=== PATIENT | male | born 1970 | race Caucasian/White ===

== ENCOUNTER 2016-09-05 15:12 | Inpatient (IN) ==
[2016-09-05] MEDS ORDERED: ZOSYN 3.375 GM/NS 3.375 GM/50 ML IVPB IV ONE (15:42)
[2016-09-05] MEDS ORDERED: NS 1,000 ML IV ONE (15:42)
[2016-09-05] MEDS ORDERED: DILAUDID IV ONE ×2 (15:42→20:10)
[2016-09-05] MEDS ORDERED: ZOFRAN IV ONE (15:42)
[2016-09-05 16:19] LABS: MANUAL DIFF NEEDED? NO
[2016-09-05 16:23] LABS: BASO% 0.6 % (0.0-0.8); EOS# 0.01 X1000 (0.0-0.7); EOS% 0.6 % (0.0-10.0); HEMATOCRIT 30.5 % (42.0-52.0); HEMOGLOBIN 10.1 g/dL (14.0-18.0); LYMPH# 0.18 X1000 (1.2-3.4); LYMPH% 11.1 % (20.5-51.1); MCH 32.4 PG (27-31); MCHC 33.1 g/dL (33-37); MCV 97.8 FL (81-99); MONO# 0.16 X1000 (0.11-0.59); MONO% 9.9 % (1.7-9.3); MPV 10.7 FL (7.4-10.4); NEUT% 77.8 % (42.2-75.2); PLT 107 X1000 (130-400); RBC 3.12 XMIL (4.7-6.1)
[2016-09-05 16:41] LABS: AGAP 11; ALBUMIN 4.2 g/dL (3.5-5.0); ALKALINE PHOSPHATASE 84 U/L (32-122); AMYLASE 33 U/L (20-200); BUN 15 mg/dL (8-22); CALCIUM 9.2 mg/dL (8.8-10.2); CHLORIDE 101 mmol/L (98-107); COSMO 275; GOT 17 U/L (10-34); GPT 10 U/L (10-44); LIPASE 11 U/L (13-60); POTASSIUM 4.6 mmol/L (3.5-5.1); SODIUM 137 mmol/L (136-145); TCO2 25 mmol/L (25-35); TOTAL PROTEIN 7.2 g/dL (6.3-8.3)
--- NOTE | 2016-09-05 16:49 | PROVIDER DOCUMENTATION ---
This chart was entered by Hollie Agarwal Scribe, acting as scribe for Tao Wise MD. HPI-General Adult <ValeriaJennifer Jr - Last Filed: 09/05/16 21:01> - General Source: patient, family, other (son came with him) - History of Present Illness -Gen Adult Nature of Presenting Problems: PT is a 45 y/o M presenting to ED with pain in the right groin area. PT son states that PT was diagnosed in February with throat cancer and takes chemo and radiation. PT has tenderness on right side groin area. Son claims PT was slumped over when he found him this afternoon. Son states PT works every day and goes to chemo and radiation after. Location of Pain/Injury: reports: abdomen, pelvis Pain Radiation: reports: no radiation Quality of Pain: reports: aching Severity: reports: moderate Onset/Duration: reports: unsure Timing: reports: still present Context/Activities at Onset: reports: light activity Modifying Factors: improves with: nothing Associated Symptoms: reports: fatigue, genitourinary problems, other ( tenderness in R groin) Similar Symptoms Previously?: No Recently seen or treated by another doctor?: No <Tao Wise - Last Filed: 09/06/16 06:06> - General Chief Complaint: Groin Pain Stated Complaint: "I THINK I HAVE A HERNIA" Time Seen by Provider: 09/05/16 15:27 Allergies/Adverse Reactions: Patient Allergies Allergy/AdvReac Type Severity Reaction Status Date / Time No Known Allergies Allergy Verified 11/13/15 14:58 Home Medications: Home Medication List Medication Instructions Recorded Confirmed Last Taken Type Albuterol Sulfate [Proair Hfa] 8.5 gm 08/11/16 Unknown History Fentanyl [Fentanyl] 25 mg 08/11/16 Unknown History Lorazepam [Lorazepam] 1 mg PO PRN PRN 08/11/16 08/11/16 Unknown History Review of Systems - Adult - REVIEW OF SYSTEMS - ADULT Constitutional: reports: no symptoms reported Eyes: reports: no symptoms reported Ears, Nose, Mouth & Throat: reports: no symptoms reported Cardiovascular: reports: no symptoms reported Respiratory: reports: no symptoms reported Gastrointestinal: reports: no symptoms reported Genitourinary: reports: dysuria, other (R Groin pain). denies: hematuria Musculoskeletal: reports: no symptoms reported Integumentary: reports: no symptoms reported Neurological: reports: no symptoms reported Psychiatric: reports: no symptoms reported Endocrine: reports: no symptoms reported Hematologic/Lymphatic: reports: no symptoms reported Allergic/Immunologic: reports: no symptoms reported All Other Systems: Reviewed and Negative <Tao Wsie - Last Filed: 09/06/16 06:06> Past History - Adult - PAST MEDICAL HISTORY-ADULT Review of Records: reports: Nursing Assessment Review, Medications Reviewed, Social history reviewed & non-contributory. Major Childhood Illnesses: reports: denies history Cardiovascular: reports: denies history Respiratory: reports: denies history Gastrointestinal: reports: denies history Obstetrical/Gynecological: reports: denies history Genitourinary: reports: denies history Musculoskeletal: reports: denies history Neurological: reports: denies history Psychiatric: reports: denies history Endocrine/Immune: reports: denies history Other Conditions: reports: other (throat cancer currently treating) - PRIOR SURGERIES/PROCEDURES Surgical/Procedure History: reports: reviewed, not pertinent - IMMUNIZATION STATUS Childhood Immunizations: See Nurse Assessment Flu Vaccine: See Nurse Assessment - FAMILY HISTORY Family History: reviewed, not pertinent - SOCIAL HISTORY Smoking: cigarettes, greater than 1 pack/day Provider spent 3-5 mins advising pt. on dangers of tobacco.: Discussed manners to quit use, and f/u contacts for add'l counseling. Living Situation: alone <Tao Wise - Last Filed: 09/06/16 06:06> Physical Exam-General - PHYSICAL EXAM-ADULT Initial Vital Signs Reviewed: Yes - CONSTITUTIONAL General Appearance: alert, mild distress, slow to respond - EYES Eyes: PERRL/EOMI, pink conjunctivae - HEAD, EARS, NOSE, MOUTH & THROAT HENMT: normal ENT inspection - NECK Neck: non-tender, normal inspection - RESPIRATORY Respiratory: chest non-tender, lungs clear, normal breath sounds - CARDIOVASCULAR Cardiovascular: normal peripheral pulses, regular rate, rhythm - GASTROINTESTINAL (ABDOMEN) Abdominal Exam: normal bowel sounds, non tender, soft - GENITOURINARY Male Genitalia: hernia mass (R groin) - LYMPHATIC Lymphatic: no adenopathy - MUSCULOSKELETAL Back Exam: normal inspection Extremity: normal range of motion, non-tender - SKIN Integumentary: other (skin color appeared pale. PT has throat cancer and is currently undergoing radiation and chemo.) - NEUROLOGIC Neurologic: grossly normal - PSYCHIATRIC Psych/Mental Status: normal mood/affect, other (PT appears tired and slow to respond.) <Oseas Wisejosette X - Last Filed: 09/06/16 06:06> Progress - PLAN OF CARE/RESULTS Progress/Plan/Lab Results: Vital Signs - 8 hr 09/05/16 15:17 Temperature 98 F Pulse Rate 95 H Respiratory Rate 18 Blood Pressure 137/81 O2 Sat by Pulse Oximetry 97 Laboratory Results - last 24 hr 09/05/16 09/05/16 09/05/16 16:15 16:15 16:15 WBC 1.62 L RBC 3.12 L Hgb 10.1 L Hct 30.5 L MCV 97.8 MCH 32.4 H MCHC 33.1 RDW Std Deviation 15.4 H Plt Count 107 L MPV 10.7 H Immature Gran % (Auto) 0.0 Neut % (Auto) 77.8 H Lymph % (Auto) 11.1 L Centre % (Auto) 9.9 H Eos % (Auto) 0.6 Baso % (Auto) 0.6 Immature Gran # (Auto) 0.00 Neut # (Auto) 1.26 L Lymph # (Auto) 0.18 L Centre # (Auto) 0.16 Eos # (Auto) 0.01 Baso # (Auto) 0.01 Sodium 137 Potassium 4.6 Chloride 101 Carbon Dioxide 25 Anion Gap 11 BUN 15 Creatinine 0.7 Estimated GFR/1.73 m2 > 60 BUN/Creatinine Ratio 21 Glucose 107 H Calculated Osmolality 275 Calcium 9.2 Total Bilirubin 0.30 AST 17 ALT 10 Alkaline Phosphatase 84 Troponin T < 0.010 Total Protein 7.2 Albumin 4.2 Globulin 3.0 Albumin/Globulin Ratio 1.0 Amylase 33 Lipase 11 L Orders Category Date Time Status Saline Loc DIRECTED Care 09/05/16 15:44 Active NPO Diet 09/05/16 15:44 Active ABDOMEN/PELVIS W/CONTRAST [CT] Stat Exams 09/05/16 16:47 Completed AMYLASE [CHEM] Stat Lab 09/05/16 16:15 Completed CBC WITH ELECTRONIC DIFF [HEME] Stat Lab 09/05/16 16:15 Completed COMPREHENSIVE METABOLIC PANEL [CHEM] Stat Lab 09/05/16 16:15 Completed LIPASE [CHEM] Stat Lab 09/05/16 16:15 Completed TROPONIN T Stat Lab 09/05/16 16:[address] W/POSS RFLX CULT [URINALYSIS] Stat Lab 09/05/16 15:44 Uncollected 0.9% Sodium Chloride Inj [Ns] 1,000 ml Med 09/05/16 15:42 Discontinued IV 999 mls/hr Hydromorphone [Dilaudid] Med 09/05/16 20:07 Discontinued 1 mg .ROUTE .STK-MED ONE Hydromorphone [Dilaudid] Med 09/05/16 15:42 Discontinued 1 mg IV NOW ONE Hydromorphone [Dilaudid] Med 09/05/16 20:10 Discontinued 1 mg IV NOW ONE Ondansetron [Zofran] Med 09/05/16 15:42 Discontinued 4 mg IV NOW ONE Piperacil/Tazobact 3.375 gm/Ns [Zosyn 3.375 gm/Ns] Med 09/05/16 15:42 Discontinued 3.375 gm in 50 ml IV NOW Result Diagrams: 09/05/16 16:15 09/05/16 16:15 - CT/MRI 1 CT Study: Abdomen, Pelvis Impression: Abnormal (herniated segment of bowel in hernial sac is midly dilated. no obstruction.) CT Results: right inguinal hernia containing loop of bowel. - CONSULTS/PCP/HOSPITALIST Notification #1 *Consult/PCP/Hospitalist*: Dr. Garza Time Discussed: 21:00 Consult Disposition: Will see in ED <Jennifer Shaw Jr - Last Filed: 09/05/16 21:01> - PLAN OF CARE/RESULTS Progress/Plan/Lab Results: Vital Signs - 8 hr 09/05/16 15:17 Temperature 98 F Pulse Rate 95 H Respiratory Rate 18 Blood Pressure 137/81 O2 Sat by Pulse Oximetry 97 Result Diagrams: 09/05/16 16:15 09/05/16 16:15 - CHANGE OF SHIFT REPORT (ED Provider) Report Given and Care Transferred to:: Dr. Shaw Time of Transfer: 18:00 Items Pending: Labs, CT/MRI Results <Tao Wise - Last Filed: 09/06/16 06:06> Departure <Jennifer Shaw Jr - Last Filed: 09/05/16 21:01> - Departure Date of Disposition Decision: 09/05/16 Time of Disposition Decision: 20:30 Certified Medical Emergency: Emergent - Critical Care Note This patient required my direct & personal management of CC.: Yes Total Time (mins): 35 Critical Care Statement: This patient required my direct personal management to treat or rule out processes, the absence of which, could potentiallly result in sudden, clinically significant life or limb threatening deterioration. <Tao Wise - Last Filed: 09/06/16 06:06> - Departure DIAGNOSIS: Incarcerated hernia Disposition: ADMITTED INPATIENT 09 Condition: Stable This chart was documented by the indicated scribe, (Hollie Agarwal Scribe) and accurately reflects the services I performed and decisions made by me, Tao Wise MD, as attested by the provider's signature.
[2016-09-05] MEDS ORDERED: DILAUDID ONE (20:07)
--- NOTE | 2016-09-05 20:36 | Diag Imaging Result Doc PS360 ---
EXAM: ABDOMEN/PELVIS W/CONTRAST INDICATION: With IV and PO contrast TECHNIQUE: Dose reduction protocol was used. COMPARISON: 01/25/2016 FINDINGS: A gastrostomy tube is in place. There is a prominent right inguinal hernia that contains mesenteric fat and a loop of small bowel. The bowel was not present in the hernia on the previous study. The section of the small bowel in the hernial sac is mildly dilated. The remaining small bowel is not dilated. Otherwise, no focal inflammatory changes, free abdominal gas, or free fluid is appreciated. The remainder of the solid viscera of the abdomen and pelvis and the remainder of the GI tract are essentially unremarkable.. IMPRESSION: 1.Prominent right inguinal hernia containing a loop of bowel. The herniated segment of bowel with mildly dilated. There is no other sign of bowel obstruction. 2.Other incidental/nonacute findings detailed above. Electronically signed by Joshua Franco 09/05/2016 8:33 PM
[2016-09-05] MEDS ORDERED: MORPHINE IV PRN (21:52)
[2016-09-05] MEDS ORDERED: HURRICAINE SPRAY (DOSE) ONE (21:52)
[2016-09-05] MEDS ORDERED: FENTANYL ONE (22:05)
[2016-09-05] MEDS ORDERED: DIPRIVAN 1% ONE (22:05)
[2016-09-05] MEDS ORDERED: NORCURON ONE (22:07)
[2016-09-05] MEDS ORDERED: ROBINUL ONE (22:07)
[2016-09-05] MEDS ORDERED: QUELICIN (DOSE) ONE (22:07)
[2016-09-05] MEDS ORDERED: SODIUM CHLORIDE 0.9% 10 ML ONE (22:07)
[2016-09-05] MEDS ORDERED: XYLOCAINE-MPF 2% ONE (22:07)
[2016-09-05] MEDS ORDERED: ZOFRAN ONE (22:13)
--- NOTE | 2016-09-05 22:26 | HISTORY AND PHYSICAL ---
CHIEF COMPLAINT: Right inguinal hernia with severe pain. HISTORY: I was called about 9 p.m. for a 45-year-old gentleman who arrived around 3 o'clock with a right groin mass and severe pain. He states that this has not been present prior to this. He has been undergoing radiation and chemotherapy for neck cancer. He has a gastrostomy tube in place. Apparently a CT scan was done, which revealed a loop of bowel in the hernia sac and the hernia has not been able to be reduced, but is extremely tender to palpation. MEDICATIONS: He is on albuterol or ProAir. He takes fentanyl for pain and lorazepam as needed. ALLERGIES: He has no known drug allergies. REVIEW OF SYSTEMS: Pertinent for the right groin pain. SOCIAL HISTORY: He is a smoker. PAST MEDICAL HISTORY: Other past history is unremarkable. SOCIAL HISTORY: The patient lives with his aunt. FAMILY HISTORY: Not known. PHYSICAL EXAMINATION: VITAL SIGNS: He is afebrile. At least this is the only recorded vital signs at 1517. Temperature is 98 degrees, pulse rate is 95, respiratory rate 18, blood pressure 137/81. GENERAL: He is very sedated upon my examination, but does awaken with stimulation. HEAD AND NECK: He has evidence of radiation to his head and neck. LUNGS: He has bilateral breath sounds. HEART: Regular rate and rhythm. ABDOMEN: Soft. It is nondistended. He has an exquisitely tender mass in the right groin extending towards his right scrotum. EXTREMITIES: He has brawny edema in the lower extremities with discoloration. ASSESSMENT: Incarcerated right inguinal hernia. PLAN: Urgent repair. I have discussed this with him and his aunt as well. cc: Wagner Garza MD
[2016-09-05] MEDS ORDERED: KEFZOL 1 GM/D5W 1 GM/50 ML IVPB ONE (22:28)
[2016-09-05] MEDS ORDERED: SENSORCAINE 0.25%/EPI 1:200,000 ONE (22:28)
[2016-09-05] MEDS ORDERED: NEO-SYNEPHRINE ONE (23:10)
[2016-09-05] MEDS ORDERED: SODIUM CHLORIDE 0.9% 20 ML ONE (23:10)
[2016-09-05] MEDS ORDERED: NEOSTIGMINE ONE (23:13)
[2016-09-06] MEDS ORDERED: NARCAN ONE (01:00)
[2016-09-06] MEDS ORDERED: NS 1,000 ML ONE (01:26)
[2016-09-06] MEDS ORDERED: NORCO-10 PO ONE (01:51)
[2016-09-06] MEDS ORDERED: NS 1,000 ML IV ONE ×2 (01:51)
[2016-09-06] MEDS ORDERED: DURAGESIC 25 MICROGM/HR PATCH TD SCH (01:51)
[2016-09-06 02:07] LABS: URINE CULTURE NEEDED? NO; URINE MICRO REVIEW NEEDED? NO; URINE SOURCE CATH
[2016-09-06 02:14] LABS: BILIRUBIN URINE NEGATIVE (NEGATIVE); BLOOD URINE NEGATIVE (NEGATIVE); COLOR YELLOW; GLUCOSE URINE NEGATIVE (NEGATIVE); LEUKOCYTES URINE NEGATIVE (NEGATIVE); NITRITE URINE NEGATIVE (NEGATIVE); PH URINE 6.5; PROTEIN URINE TRACE mg/dL (NEGATIVE); SP GRAVITY URINE 1.049; TURBIDITY URINE CLEAR (CLEAR); UROBILINOGEN URINE NORMAL (NORMAL)
[2016-09-06 02:15] LABS: UR EPITHELIAL CELLS <10 /HPF (<10); URINE BACTERIA NEGATIVE /HPF; URINE RBC <10 /HPF (<10); URINE WBC <10 /HPF (<10)
[2016-09-06] MEDS: KEFZOL 1 GM/D5W 1 GM/50 ML IVPB IV SCH ×3 (02:52→18:11)
--- NOTE | 2016-09-06 04:24 | OPERATIVE NOTE ---
PROCEDURE DATE: 09/06/2016 PROCEDURE PERFORMED: Repair of incarcerated right inguinal hernia with a Shyam's ligament repair. SURGEON: Wagner Garza MD HYPERION DEVELOPER: LILI Powell PREOPERATIVE DIAGNOSIS: Incarcerated right inguinal hernia. POSTOPERATIVE DIAGNOSIS: Incarcerated indirect right inguinal hernia. DESCRIPTION OF PROCEDURE: Satisfactory general endotracheal anesthesia was achieved. The abdomen and groins were prepped and draped in a sterile fashion. We used an Ioban drape. Prophylactic Kefzol had been given. We then anesthetized the skin with 0.25 Marcaine with epinephrine in an oblique fashion over the obvious mass. We incised the skin, and carried our incision through the subcutaneous tissue through the Veronica's fascia. The incision in the external oblique aponeurosis was made over the internal ring. We mobilized the cord structures. We then dissected out the hernia sac and it was noted to come through the internal ring. We expanded the internal ring laterally. We then opened the hernia sac and inside was a loop of bowel, but it was viable. We were able to reduce the bowel back into the abdominal cavity. We then placed a 2-0 silk pursestring at the base of the hernia sac. After putting a 2-0 silk pursestring, we then doubly ligated it again with a 2-0 silk, and we then excised the redundant peritoneum. The stump was inverted or pushed back into the preperitoneal area. We then made a relaxing incision above where the transversalis and internal oblique inserted into the rectus sheath. We then used 0 Prolene stitches to go from that internal oblique and transversus down to Shyam's ligament. We placed a couple of stitches there, then made a transition stitch to the inguinal ligament. We placed 1 stitch lateral to the cord structures thereby reconstructing the internal ring. We took care to avoid the ilioinguinal nerve. We felt we had adequate repair. We then closed the external oblique aponeurosis with 3-0 Polysorb as best we could, even though there was not a lot of external oblique inferiorly to sew to. We injected 0.25 Marcaine with epinephrine. We then closed Veronica fascia with 3-0 Polysorb. The skin was then closed with a 4-0 Polysorb subcuticular stitch. Telfa and sterile OpSite was applied. He tolerated it well. He was sent to the recovery room in satisfactory condition. cc: Wagner Garza MD
[2016-09-06] MEDS ORDERED: NORCO-10 PO PRN (08:00)
[2016-09-06] MEDS: DUONEB (A & A) INH SCH ×4 (11:56→23:02)
[2016-09-07] MEDS: KEFZOL 1 GM/D5W 1 GM/50 ML IVPB IV SCH ×2 (02:06→08:51)
[2016-09-07] MEDS: DUONEB (A & A) INH SCH ×2 (03:46→07:57)
[2016-09-07 05:51] LABS: MANUAL DIFF NEEDED? NO
[2016-09-07 06:00] LABS: BASO% 0.5 % (0.0-0.8); EOS# 0.03 X1000 (0.0-0.7); EOS% 1.4 % (0.0-10.0); HEMOGLOBIN 9.6 g/dL (14.0-18.0); LYMPH# 0.26 X1000 (1.2-3.4); LYMPH% 12.1 % (20.5-51.1); MCH 33.4 PG (27-31); MCHC 33.1 g/dL (33-37); MONO# 0.31 X1000 (0.11-0.59); MONO% 14.5 % (1.7-9.3); MPV 11.1 FL (7.4-10.4); NEUT% 71.5 % (42.2-75.2); PLT 83 X1000 (130-400); RBC 2.87 XMIL (4.7-6.1)
[2016-09-07 06:20] LABS: AGAP 10; BUN 11 mg/dL (8-22); CALCIUM 8.6 mg/dL (8.8-10.2); CHLORIDE 96 mmol/L (98-107); COSMO 271; POTASSIUM 4.1 mmol/L (3.5-5.1); SODIUM 135 mmol/L (136-145); TCO2 29 mmol/L (25-35)
[2016-09-07] MEDS ORDERED: PRILOSEC PO SCH (07:00)
[2016-09-07 07:24] VITALS: BP 106/63
== END 2016-09-07 10:28 | disposition home or self-care (01) ==
LOC: P.ED 15:12 → ICU 09-06 01:48 → 4N 09-06 11:11
PROVIDERS: ADMIT Surgery; ATTEND Surgery

== ENCOUNTER 2018-04-27 08:39 | Inpatient (IN) ==
[2018-04-27 09:22] LABS: BASO# 0.01 X1000 (0.0-0.2); BASO% 0.2 % (0.0-0.8); EOS# 0.01 X1000 (0.0-0.7); EOS% 0.2 % (0.0-10.0); HEMATOCRIT 42.1 % (42.0-52.0); HEMOGLOBIN 13.2 g/dL (14.0-18.0); IMM GRAN# 0.01 X1000 (0.0-0.04); IMM GRAN% 0.2 % (0.0-0.5); LYMPH# 0.25 X1000 (1.2-3.4); LYMPH% 3.9 % (20.5-51.1); MCH 27.1 PG (27-31); MCHC 31.4 g/dL (33-37); MCV 86.4 FL (81-99); MONO# 0.63 X1000 (0.11-0.59); MONO% 9.9 % (1.7-9.3); MPV 10.4 FL (7.4-10.4); NEUT# 5.44 X1000 (1.4-6.5); NEUT% 85.6 % (42.2-75.2); PLT 246 X1000 (130-400); RBC 4.87 XMIL (4.7-6.1); RDW 17.4 % (11.5-14.5); WBC 6.35 X1000 (4.8-10.8)
[2018-04-27 09:31] LABS: INR 1.09; PROTIME 14.7 Seconds (11.0-16.0)
[2018-04-27 09:32] LABS: PTT 28.5 Seconds (22.3-41.8)
[2018-04-27 09:38] LABS: AGAP 13; ALKALINE PHOSPHATASE 111 U/L (32-122); BUN 32 mg/dL (8-22); CALCIUM 9.3 mg/dL (8.8-10.2); CHLORIDE 93 mmol/L (98-107); CK PROFILE 84 U/L (24-204); COSMO 292; CREATININE 0.8 mg/dL (0.7-1.2); ESTIMATED GFR > 60; GLUCOSE 102 mg/dL (70-104); GOT 41 U/L (10-34); GPT 27 U/L (10-44); POTASSIUM 3.8 mmol/L (3.5-5.1); SODIUM 143 mmol/L (136-145); TCO2 37 mmol/L (25-35); TOTAL PROTEIN 7.6 g/dL (6.3-8.3)
[2018-04-27 09:39] LABS: BANDS 2 % (0-1); LYMPHS 6 % (21-51); MONO 6 % (1-9); SEGS 86 % (42-75)
[2018-04-27 09:50] LABS: BE 14.1 mmoll (-3.0-3.0); BLOOD TYPE ARTERIAL; HCO3-(ACT) 35.6 mmoll (20.0-26.0); METHB 0.8 % (0.0-1.5); O2(CT) 14.9 mL/dL (15.0-23.0); PCO2(98.6) 49 mmHg (35-45); SAMPLE BLOOD; SAO2 89.3 % (95.0-100.0); THB 12.8 g/dL (11.5-17.4); pH(98.6) 7.51 (7.35-7.45)
[2018-04-27 09:53] LABS: PO2(98.6) 48 mmHg (60-100)
[2018-04-27 09:54] LABS: ALLEN TEST YES; MODALITY ROOM AIR; O2HB 82.9 % (95.0-99.0)
[2018-04-27 10:19] LABS: BILIRUBIN URINE NEGATIVE (NEGATIVE); BLOOD URINE NEGATIVE (NEGATIVE); CLARITY CLEAR (CLEAR); COLOR YELLOW; GLUCOSE URINE NEGATIVE (NEGATIVE); KETONE URINE NEGATIVE (NEGATIVE); LEUKOCYTES URINE TRACE (NEGATIVE); NITRITE URINE NEGATIVE (NEGATIVE); PH URINE 6.5; PROTEIN URINE TRACE mg/dL (NEGATIVE); UROBILINOGEN URINE NORMAL
--- NOTE | 2018-04-27 10:21 | Diag Imaging Result Doc PS360 ---
EXAM: CHEST-1 VIEW INDICATION: COUGH/GILMA/SEPSIS TECHNIQUE: One view COMPARISON: 02/04/2016 FINDINGS: There is a moderate-sized right pleural effusion and likely a small left effusion. There are infiltrates in the right perihilar region and at both lung bases, likely a combination of edema and pneumonia. There is also likely a component of atelectasis at both lung bases. The heart does not appear to be significantly enlarged. The right hilum is prominent. There is a new vascular stent projecting of the upper mediastinum to the right of the trachea, likely an SVC stent. IMPRESSION: 1.Bilateral consolidations as described likely representing a combination of pneumonia and edema. 2.Moderate-sized right pleural effusion and likely small left effusion with adjacent atelectasis. Electronically signed by Joshua Franco 04/27/2018 10:19 AM
[2018-04-27 10:27] LABS: URINE BACTERIA 1+ /HFP; URINE EPITHELIAL CELLS <10 /HPF (<10); URINE SOURCE CLEAN CATCH; URINE WBC <10 /HPF (<10)
--- NOTE | 2018-04-27 10:48 | PROVIDER DOCUMENTATION ---
This chart was entered by Dawna Poon Scribe, acting as scribe for Barrington Macias MD. HPI-Respiratory General - General Chief Complaint: Shortness of Breath Stated Complaint: SOB Time Seen by Provider: 04/27/18 09:19 Source: patient Allergies/Adverse Reactions: Patient Allergies Allergy/AdvReac Type Severity Reaction Status Date / Time No Known Allergies Allergy Verified 04/27/18 09:46 Home Medications: Home Medication List Medication Instructions Recorded Confirmed Last Taken Type Albuterol Sulfate [Proair Hfa] 2 inh INH Q4-6H PRN PRN 08/11/16 04/27/18 Unknown History Fentanyl 50 mg TOP Q3D 08/11/16 04/27/18 Unknown History Lorazepam 0.5 mg PO PRN PRN 08/11/16 04/27/18 Unknown History Cyclobenzaprine HCl [Flexeril] 5 mg PO Q4-6H PRN PRN 09/06/16 04/27/18 Unknown History Furosemide [Lasix] 20 mg PO DAILY PRN 09/06/16 04/27/18 Unknown History Hydrocodone/APAP 10 mg/325 mg 1 each PO PRN PRN 09/06/16 04/27/18 Unknown History [[place]-10] Mag&Al/Sim/Diphenhyd/Lidocaine 1 - 2 tsp PO Q4-6H PRN PRN 09/06/16 04/27/18 Unknown History [First-Mouthwash Blm Suspension] Ondansetron HCl [Zofran] 8 mg PO Q8H PRN PRN 09/06/16 04/27/18 Unknown History Pantoprazole Sodium [Protonix] 20 mg PO DAILY 09/06/16 04/27/18 Unknown History - History of Present Illness-Resp Nature of Presenting Problem: 47yom with hx of throat cancer, COPD, and seizures c/o productive cough and sob for two weeks that has worsened this morning. He reports he uses a nebulizer at home. He reports his oncologist as Dr. Rodriguez at [facility] in [place], [place]. He denies fever, chills, nausea, vomiting, diarrhea, cp. The patient's is at bedside. Quality of Pain: reports: none Severity in ED: reports: mild, moderate Onset/Duration: reports: other (2 weeks) Timing: reports: still present, intermittent, constant Cough Quality/Degree: reports: moderate, productive cough Episode Frequency: other (pt has hx of COPD) Current Respiratory Medication Therapy: Initiated see nurses note Modifying Factors: improves with: nothing Associated Symptoms: reports: cough, shortness of breath. denies: chest pain/ soreness, fever/chills Similar Symptoms Previously?: No Recently seen or treated by another doctor?: No Review of Systems - Adult - REVIEW OF SYSTEMS - ADULT Constitutional: denies: chills, fever Eyes: denies: discharge, dry eyes Ears, Nose, Mouth & Throat: denies: ear discharge, ear pain Cardiovascular: denies: chest pain, palpitations Respiratory: reports: cough, shortness of breath Gastrointestinal: denies: abdominal pain, diarrhea, nausea, vomiting Genitourinary: denies: dysuria, hematuria Musculoskeletal: denies: back pain, muscle aches, muscle weakness Integumentary: reports: no symptoms reported Neurological: denies: dizziness/vertigo, headache/migraines Psychiatric: reports: no symptoms reported Endocrine: reports: no symptoms reported Hematologic/Lymphatic: reports: no symptoms reported Allergic/Immunologic: reports: no symptoms reported All Other Systems: Reviewed and Negative Past History - Adult - PAST MEDICAL HISTORY-ADULT Review of Records: reports: Old Records Reviewed, Nursing Assessment Review, Medications Reviewed Major Childhood Illnesses: reports: denies history Respiratory: reports: COPD Neurological: reports: Seizures/Epilepsy Other Conditions: reports: other (throat cancer currently treating) - PRIOR SURGERIES/PROCEDURES Surgical/Procedure History: reports: hernia repair, other (feeding tube) - IMMUNIZATION STATUS Childhood Immunizations: See Nurse Assessment Flu Vaccine: See Nurse Assessment - FAMILY HISTORY Family History: reviewed, not pertinent - SOCIAL HISTORY Smoking: cigarettes, less than 1 pack/day Substance Use: denies Living Situation: family Physical Exam-General - PHYSICAL EXAM-ADULT Initial Vital Signs Reviewed: Yes - CONSTITUTIONAL General Appearance: alert, no apparent distress, other (patient is wearing oxygen via nasal cannula) - EYES Eyes: PERRL/EOMI, pink conjunctivae - HEAD, EARS, NOSE, MOUTH & THROAT HENMT: normocephalic/atraumatic, moist mucous membranes - NECK Neck: non-tender, supple - RESPIRATORY Respiratory: decreased breath sounds, rhonchi. negative: wheezing - CARDIOVASCULAR Cardiovascular: no murmur, tachycardia - GASTROINTESTINAL (ABDOMEN) Abdominal Exam: non tender, soft, other (feeding tube in place) - MUSCULOSKELETAL Extremity: non-tender, no calf tenderness, pedal edema (3+ LLE/RLE), swelling ( LLE/RLE) - SKIN Integumentary: normal color, warm/dry - NEUROLOGIC Neurologic: grossly normal, no motor/sensory deficits - PSYCHIATRIC Psych/Mental Status: normal mood/affect, normal thought content, normal thought process, oriented x 3 Progress - PLAN OF CARE/RESULTS Progress/Plan/Lab Results: Vital Signs - 8 hr 04/27/18 08:43 04/27/18 08:49 04/27/18 09:47 Temperature 97.7 F 97.7 F Pulse Rate 120 H 118 H 116 H Respiratory Rate 26 H 19 28 H Blood Pressure 97/80 94/71 92/76 O2 Sat by Pulse Oximetry 94 L 90 L 96 04/27/18 10:11 Temperature Pulse Rate 115 H Respiratory Rate 29 H Blood Pressure 111/86 O2 Sat by Pulse Oximetry 97 Laboratory Results - last 24 hr 04/27/18 04/27/18 04/27/18 09:05 09:05 09:05 WBC 6.35 RBC 4.87 Hgb 13.2 L Hct 42.1 MCV 86.4 MCH 27.1 MCHC 31.4 L RDW Std Deviation 17.4 H Plt Count 246 MPV 10.4 Immature Gran % (Auto) 0.2 Neut % (Auto) 85.6 H Lymph % (Auto) 3.9 L [place] % (Auto) 9.9 H Eos % (Auto) 0.2 Baso % (Auto) 0.2 Immature Gran # (Auto) 0.01 Neut # (Auto) 5.44 Lymph # (Auto) 0.25 L [place] # (Auto) 0.63 H Eos # (Auto) 0.01 Baso # (Auto) 0.01 Segmented Neutrophils 86 H Band Neutrophils 2 H Lymphocytes 6 L Monocytes 6 PT 14.7 INR 1.09 PTT (Actin FS) 28.5 Specimen Type Sample Site pH pCO2 pO2 HCO3 Base Excess Oxyhemoglobin ABG O2 Sat (Calculated) ABG O2 Saturation ABG Carboxyhemoglobin ABG Methemoglobin Christian Test A-a O2 Difference Total Hemoglobin Lactate Blood Gas Modality FiO2 % Sodium 143 Potassium 3.8 Chloride 93 L Carbon Dioxide 37 H Anion Gap 13 BUN 32 H Creatinine 0.8 Estimated GFR/1.73 m2 > 60 BUN/Creatinine Ratio 40 Glucose 102 Calculated Osmolality 292 Calcium 9.3 Total Bilirubin 0.50 AST 41 H ALT 27 Alkaline Phosphatase 111 Creatine Kinase 84 Troponin T Total Protein 7.6 Albumin 4.0 Globulin 4.0 Albumin/Globulin Ratio 1.0 Plasma Lactate Urine Source Urine Color Urine Clarity Urine pH Ur Specific [place] Urine Protein Urine Ketones Urine Blood Urine Nitrite Urine Bilirubin Urine Urobilinogen Urine Microscopic RBC Urine WBC Urine Microscopic WBC Ur Epithelial Cells Urine Bacteria Urine Glucose 04/27/18 04/27/18 04/27/18 09:05 09:05 09:38 WBC RBC Hgb Hct MCV MCH MCHC RDW Std Deviation Plt Count MPV Immature Gran % (Auto) Neut % (Auto) Lymph % (Auto) [place] % (Auto) Eos % (Auto) Baso % (Auto) Immature Gran # (Auto) Neut # (Auto) Lymph # (Auto) [place] # (Auto) Eos # (Auto) Baso # (Auto) Segmented Neutrophils Band Neutrophils Lymphocytes Monocytes PT INR PTT (Actin FS) Specimen Type ARTERIAL Sample Site R RADIAL pH 7.51 H pCO2 49 H pO2 48 L* HCO3 35.6 H Base Excess 14.1 H Oxyhemoglobin 82.9 L* ABG O2 Sat (Calculated) 14.9 L ABG O2 Saturation 89.3 L ABG Carboxyhemoglobin 6.50 H* ABG Methemoglobin 0.8 Christian Test YES A-a O2 Difference 40.0 Total Hemoglobin 12.8 Lactate 1.90 Blood Gas Modality ROOM AIR FiO2 % 21.0 Sodium Potassium Chloride Carbon Dioxide Anion Gap BUN Creatinine Estimated GFR/1.73 m2 BUN/Creatinine Ratio Glucose Calculated Osmolality Calcium Total Bilirubin AST ALT Alkaline Phosphatase Creatine Kinase Troponin T < 0.010 Total Protein Albumin Globulin Albumin/Globulin Ratio Plasma Lactate 2.4 H Urine Source Urine Color Urine Clarity Urine pH Ur Specific [place] Urine Protein Urine Ketones Urine Blood Urine Nitrite Urine Bilirubin Urine Urobilinogen Urine Microscopic RBC Urine WBC Urine Microscopic WBC Ur Epithelial Cells Urine Bacteria Urine Glucose 04/27/18 10:05 WBC RBC Hgb Hct MCV MCH MCHC RDW Std Deviation Plt Count MPV Immature Gran % (Auto) Neut % (Auto) Lymph % (Auto) [place] % (Auto) Eos % (Auto) Baso % (Auto) Immature Gran # (Auto) Neut # (Auto) Lymph # (Auto) [place] # (Auto) Eos # (Auto) Baso # (Auto) Segmented Neutrophils Band Neutrophils Lymphocytes Monocytes PT INR PTT (Actin FS) Specimen Type Sample Site pH pCO2 pO2 HCO3 Base Excess Oxyhemoglobin ABG O2 Sat (Calculated) ABG O2 Saturation ABG Carboxyhemoglobin ABG Methemoglobin Christian Test A-a O2 Difference Total Hemoglobin Lactate Blood Gas Modality FiO2 % Sodium Potassium Chloride Carbon Dioxide Anion Gap BUN Creatinine Estimated GFR/1.73 m2 BUN/Creatinine Ratio Glucose Calculated Osmolality Calcium Total Bilirubin AST ALT Alkaline Phosphatase Creatine Kinase Troponin T Total Protein Albumin Globulin Albumin/Globulin Ratio Plasma Lactate Urine Source CLEAN CATCH Urine Color YELLOW Urine Clarity CLEAR Urine pH 6.5 Ur Specific [place] 1.020 Urine Protein TRACE A Urine Ketones NEGATIVE Urine Blood NEGATIVE Urine Nitrite NEGATIVE Urine Bilirubin NEGATIVE Urine Urobilinogen NORMAL Urine Microscopic RBC Not Reportable Urine WBC TRACE A Urine Microscopic WBC <10 Ur Epithelial Cells <10 Urine Bacteria 1+ Urine Glucose NEGATIVE Orders Category Date Time Status Admit - [facility] Routine AdmDCTranf 04/27/18 10:38 Active Cardiac Monitoring DIRECTED Care 04/27/18 08:53 Active IV Insertion ORDERED Care 04/27/18 08:53 Completed Notify MD of + Sepsis Screen NOW Care 04/27/18 08:53 Active Notify Physician As Ordered Care 04/27/18 08:53 Active CHEST-1 VIEW [RAD] Stat Exams 04/27/18 08:53 Completed ABG [RESP] Routine Lab 04/27/18 09:38 Completed BLOOD CULTURE [BLDCUL] Stat Lab 04/27/18 09:13 Ordered CBC WITH DIFF [HEME] Stat Lab 04/27/18 09:05 Completed CK PROFILE [SP CHEM] Stat Lab 04/27/18 09:05 Completed COMPREHENSIVE METABOLIC PANEL [CHEM] Stat Lab 04/27/18 09:05 Completed LACTATE, PLASMA [CHEM] Lab 04/27/18 09:05 Completed LACTATE, PLASMA [CHEM] Lab 04/27/18 12:00 Uncollected LACTATE, PLASMA [CHEM] Lab 04/27/18 15:00 Uncollected PROTIME WITH INR [COAG] Stat Lab 04/27/18 09:05 Completed PTT [COAG] Stat Lab 04/27/18 09:05 Completed SPUTUM CULTURE WITH GRAM STAIN [RM] Routine Lab 04/27/18 10:45 Ordered TROPONIN T Stat Lab 04/27/18 09:[address] W/POSS RFLX CULT [URINALYSIS] Stat Lab 04/27/18 10:05 Completed URINE CULTURE [RM] Routine Lab 04/27/18 10:27 Ordered Albuterol 2.5MG/Ipratrop 0.5MG [Duoneb (A & A)] Med 04/27/18 11:30 Ordered 3 ml INH RTQ4H.WA Aerosol Treatments Routine Oth 04/27/18 10:44 Active Aerosol Treatments Stat Oth 04/27/18 10:44 Active Oxygen Device Stat Oth 04/27/18 08:53 Active Oxygen Device Stat Oth 04/27/18 10:44 Active Transfer/Admit Order [TRANSFER] Routine Transfer 04/27/18 10:40 Ordered Result Diagrams: 04/27/18 09:05 04/27/18 09:05 - XRAY 1 XRAY Study: Chest Impression: Abnormal (FINDINGS: There is a moderate-sized right pleural effusion and likely a small left effusion. There are infiltrates in the right perihilar region and at both lung bases, likely a combination of edema and pneumonia. There is also likely a component of atelectasis at both lung bases. The heart does not appear to be significantly enlarged. The right hilum is prominent. There is a new vascular stent projecting of the upper mediastinum to the right of the trachea, likely an SVC stent. IMPRESSION: 1.Bilateral consolidations as described likely representing a combination of pneumonia and edema. 2.Moderate-sized right pleural effusion and likely small left effusion with adjacent atelectasis.) Departure - Departure Date of Disposition Decision: 04/27/18 Time of Disposition Decision: 10:46 DIAGNOSIS: Respiratory failure, Pneumonia Disposition: HOME 01 Certified Medical Emergency: Emergent Condition: Stable Additional Freetext Instructions: ED Follow Up Instructions: You have been treated by a care provider in the Emergency Department. These instructions are being provided to you so you can have an understanding of how to care for yourself upon discharge. Upon discharge from the Emergency Department, you are responsible for making arrangements for follow-up care by a physician of your choice. Take all prescribed medications as directed. Return to the Emergency Department immediately for any new or worsening symptoms. You may call the Physician Referral phone number at [phone] to obtain a list of Physicians who are taking new patients. Referrals and Follow-Ups: Cosme Garza [Primary Care Provider] - Discharge Education: Steps to Quit Smoking, [id number] - Critical Care Note This patient required my direct & personal management of CC.: No Attestation - Physician/ SHARAN Attestation Patient care was provided by Advanced Practice Provider:: No The physician spent face to face time with patient:: Yes Advanced Practice Provider documentation review:: Supervising physician onsite and consulted in the evaluation and care of this patient. The physician did have a face to face encounter with the patient. This chart was documented by the indicated scribe, (Dawna Poon, Kemi) and accurately reflects the services I performed and decisions made by me, Barrington Macias MD, as attested by the provider's signature.
[2018-04-27] MEDS ORDERED: DUONEB (A & A) INH SCH (11:30)
[2018-04-27] MEDS ORDERED: DURAGESIC 25 MICROGM/HR PATCH TD SCH (12:41)
[2018-04-27] MEDS ORDERED: FLEXERIL PO PRN (12:41)
--- NOTE | 2018-04-27 13:21 | HISTORY AND PHYSICAL ---
PRIMARY CARE PHYSICIAN: Dr. Cosme Garza. ONCOLOGIST: Dr. Garza in [place], [place]. HISTORY OF PRESENTING ILLNESS: A productive cough and shortness of breath for 2 weeks that has progressively worsened. HISTORY OF PRESENTING ILLNESS: This is a 47-year-old male who presents to [facility] ER with complaints of a productive cough and shortness of breath for 2 weeks that has progressively worsened despite using his nebulizer at home. He is also noted to have throat cancer and is followed by Dr. Garza at [facility] in [place], [place]. His workup showed an ABG with a pH of 7.51, pCO2 of 49, PO2 48, bicarb 35.6 on room air. His plasma lactate was 2.4. His chest x-ray showed bilateral consolidations representing a combination of pneumonia and edema and a moderate-sized right pleural effusion and likely small left effusion with adjacent atelectasis. So, he is being admitted for further evaluation and treatment. PAST MEDICAL HISTORY: Throat cancer, COPD, and seizures. PAST SURGICAL HISTORY: Right inguinal hernia and a tube feeding placement. FAMILY HISTORY: Reviewed and noncontributory. SOCIAL HISTORY: Currently lives with family. Has been a pack-a-day smoker since he was 16 years old and denies any alcohol or illicit drug use. ALLERGIES: He has no known drug allergies. HOME MEDICATIONS: We will hold the following: ProAir inhalation q.4 hours p.r.n., Lasix 20 mg p.o. daily p.r.n., Magic mouthwash suspension, Zofran 8 mg p.o. q.8 hours p.r.n., Protonix 20 mg p.o. daily. We will continue the following: Flexeril 5 mg p.o. q. 4 to 6 hours p.r.n., fentanyl patch 50 mcg topically q.3 days, [place] 10, 1 p.o. p.r.n., and Ativan 0.5 mg p.o. p.r.n. LABORATORY DATA: Showed a white blood cell count of 6.35, hemoglobin 13.2, hematocrit 42.1, platelets 246,000. PT and INR of 14.7 and 1.09. ABG with a pH of 7.51, pCO2 49, PO2 48, bicarb 35.6, and this was on room air. Sodium 143, potassium 3.8, chloride 93, CO2 37, BUN of 32, creatinine 0.8, glucose 102. Cardiac enzyme was negative. Plasma lactate of 2.4. Urinalysis was negative except for 1+ bacteria. IMAGING: Chest x-ray showed bilateral consolidations representing a combination of pneumonia and edema and a moderate-sized right pleural effusion and likely small left effusion with adjacent atelectasis. REVIEW OF SYSTEMS: He denied any fever, chills, blurred vision, dizziness, chest pain. He has had a productive cough, shortness of breath. Denied any abdominal pain, constipation, diarrhea, burning or hurting with urination. PHYSICAL EXAMINATION: VITALS: On arrival he had a temperature of 97.7 degrees, a pulse of 120, respirations 26, blood pressure 97/80, saturating 94% on room air. Currently, he is up to 97% on 2 L via nasal cannula. Blood pressure is up to 125/99. GENERAL: This is a 47-year-old thin emaciated male, who is lying in the bed and answers questions appropriately. HEENT: Normocephalic and atraumatic. Normal ENT inspection. Oropharynx and nares are clear. NECK: Normal inspection, normal range of motion. LUNGS: With some scattered rhonchi and decreased breath sounds bilaterally. Equal lung expansion and chest wall movement noted. O2 via nasal cannula currently in use. HEART: He was noted to have some tachycardia on arrival, but no murmurs, rubs, or gallops noted. ABDOMEN: Soft, nontender, nondistended. He has a tube feeding in place. Bowel sounds are present x4 quadrants. MUSCULOSKELETAL: He is noted to have 3+ edema to his bilateral lower extremities that has been present for the past couple of weeks that has progressively worsened. NEUROLOGICAL: The cranial nerves 2-12 appear grossly intact. ASSESSMENT: 1. Bilateral pneumonia. 2. A moderate-sized right pleural effusion. 3. Acute respiratory failure. 4. Throat cancer. PLAN: He is being admitted to the medical unit, placed on O2 per protocol. Blood cultures x2 and urine culture and sputum culture are pending. We will place him on Zosyn 3.375 g IV q.6. We will give him Lasix 40 mg IV q.12. We will recheck a chest x-ray in the a.m., two-view, and recheck a CBC, BMP in the a.m. Send further orders after being seen by attending. Dictated by BARBARA Mckeon for Oli Whittington MD cc: BARBARA Mckeon MD Alan Walker, MD
[2018-04-27] MEDS: ZOSYN 3.375 GM in NS 50 ML IV SCH ×2 (14:07→17:36)
[2018-04-27] MEDS: LASIX IV SCH (14:07)
[2018-04-27] MEDS: NORCO-10 PO PRN (18:06)
[2018-04-27] MEDS: ATIVAN PO PRN (18:11)
[2018-04-27] MEDS ORDERED: DUONEB (A & A) INH PRN (19:33)
[2018-04-27] MEDS ORDERED: VANCOMYCIN IV PER PHARMACY MISC SCH (20:30)
[2018-04-27] MEDS ORDERED: VANCOMYCIN 2,000 MG in NS 500 ML IV ONE (22:00)
[2018-04-27] MEDS ORDERED: SODIUM CHLORIDE 0.9% INJ SCH (22:30)
[2018-04-27] MEDS: DUONEB (A & A) INH SCH (23:15)
[2018-04-27] MEDS: MUCOMYST 20% INH SCH (23:15)
[2018-04-27] MEDS: VANCOMYCIN 1 GM/NS 1 GM/250 ML IVPB IV SCH (23:16)
[2018-04-28] MEDS: VANCOMYCIN 1 GM/NS 1 GM/250 ML IVPB IV SCH
--- NOTE | 2018-04-28 00:07 | HISTORY AND PHYSICAL ---
CHIEF COMPLAINT: Shortness of breath. HISTORY OF PRESENT ILLNESS: This is a 47-year-old gentleman with head and neck cancer, throat cancer, who has a history of I believe pericardial effusion presumably related to cancer, who presented with shortness of breath and cough. He was recently admitted to [facility] for dehydration and now he presents with shortness of breath. He is hypoxic. He is tachycardic. Workup revealed a right lower lobe infiltrate with some pulmonary edema and pleural effusions. The patient was admitted for further treatment. Breathing has overall improved. PROBLEM: 1. Pneumonia, presumably gram-negative type. We will continue broad spectrum antibiotics. Pulmonary toilet. 2. Pericardial effusion with volume overload. We will continue diuretics, repeat echo and follow. 3. Significant lower extremity edema. We will continue diuretics and we will follow, get bilateral lower extremity Dopplers. This edema may be multifactorial from protein calorie malnutrition and other multiple issues. We will continue to monitor closely. 4. Acute hypoxic respiratory failure. We will continue breathing treatments, O2 and follow closely. We will do deep venous thrombosis prophylaxis, GI prophylaxis and follow. If not much improved, may need to consider pulmonary evaluation. We will pursue CT thorax tomorrow to better evaluate for tumor, pleural effusion and possible infiltrative disease consistent with pneumonia. This is a [id number] encounter note with Telma Malhotra. cc: Oli Whittington MD
[2018-04-28] MEDS: ZOSYN 3.375 GM in NS 50 ML IV SCH ×4 (01:05→17:50)
[2018-04-28] MEDS: DUONEB (A & A) INH SCH ×6 (03:29→23:11)
[2018-04-28] MEDS: LOVENOX SUBQ SCH (05:54)
[2018-04-28 06:38] LABS: BASO# 0.01 X1000 (0.0-0.2); BASO% 0.2 % (0.0-0.8); EOS# 0.01 X1000 (0.0-0.7); EOS% 0.2 % (0.0-10.0); HEMATOCRIT 39.9 % (42.0-52.0); HEMOGLOBIN 12.1 g/dL (14.0-18.0); IMM GRAN# 0.02 X1000 (0.0-0.04); IMM GRAN% 0.3 % (0.0-0.5); LYMPH# 0.41 X1000 (1.2-3.4); LYMPH% 6.4 % (20.5-51.1); MCH 26.8 PG (27-31); MCHC 30.3 g/dL (33-37); MCV 88.5 FL (81-99); MONO# 0.63 X1000 (0.11-0.59); MONO% 9.8 % (1.7-9.3); NEUT# 5.36 X1000 (1.4-6.5); NEUT% 83.1 % (42.2-75.2); PLT 226 X1000 (130-400); RBC 4.51 XMIL (4.7-6.1); RDW 17.6 % (11.5-14.5); WBC 6.44 X1000 (4.8-10.8)
[2018-04-28 07:19] LABS: AGAP 12; BUN 33 mg/dL (8-22); CALCIUM 8.9 mg/dL (8.8-10.2); CHLORIDE 95 mmol/L (98-107); COSMO 298; ESTIMATED GFR > 60; GLUCOSE 95 mg/dL (70-104); POTASSIUM 3.9 mmol/L (3.5-5.1); SODIUM 146 mmol/L (136-145); TCO2 39 mmol/L (25-35)
--- NOTE | 2018-04-28 08:02 | Diag Imaging Result Doc PS360 ---
CT THORAX W/CONTRAST - 04/28/2018 INDICATION: pneumonia COMPARISON: 04/27/2018, 01/25/2016 FINDINGS: There is apparently complete occlusion of the left subclavian vein where it crosses the first rib head. The right subclavian vein and SVC are patent. There is a stent in the SVC. There is a G-tube in place. The liver is slightly atrophic suggesting cirrhosis. There is trace ascites. There is significant body wall edema. There is a moderate to large right and trace left pleural effusion. There is dense infiltrate throughout the perihilar right lung with air bronchograms. There are also patchy areas of consolidation throughout the left lung, worse at the left lower lobe. Heart size is normal. There is a moderate pericardial effusion. No definite adenopathy. There are moderate degenerative changes of the spine. No acute or suspicious bony lesion. IMPRESSION: 1. 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 The right clavian vein and SVC are patent. 2. Dense bilateral infiltrates compatible with pneumonia. 3. Moderately large right and trace left pleural effusions. Ascites. Body wall edema. 4. Liver is slightly atrophic suggesting cirrhosis. This exam was performed using automated exposure control, adjustment of mA or kV according to patient size, and/or use of iterative reconstruction technique Electronically signed by Dioni Haro 04/28/2018 7:59 AM
[2018-04-28] MEDS: MUCOMYST 20% INH SCH ×2 (08:04→19:38)
[2018-04-28] MEDS: VANCOMYCIN 1,850 MG in NS 500 ML IV SCH ×2 (10:17→21:25)
[2018-04-28] MEDS: NORCO-10 PO PRN ×2 (10:18→21:25)
[2018-04-28] MEDS: LASIX IV SCH ×2 (13:27)
[2018-04-28] MEDS: NICODERM PATCH TD SCH (13:55)
[2018-04-28] MEDS ORDERED: DURAGESIC 50 MICROGM/HR PATCH TD SCH (15:00)
--- NOTE | 2018-04-28 17:58 | ECHO REPORT ---
ORDER DATE: 04/28/2018 INDICATIONS: A 47-year-old male with pneumonia. M-MODE MEASUREMENTS: Left ventricle end diastole: 3.3 cm. Left ventricle end systole: 2.7 cm. Posterior wall: 0.7 cm. Interventricular septum: 0.9 cm. Left atrium: 3.0 cm. This study is very limited. SUMMARY OF 2-DIMENSIONAL IMAGIN. The global left ventricular systolic function is probably mildly decreased globally in the range of 45% to 50%. There is some wall motion abnormality of the posterolateral wall, however the possibility of thickening of the pericardium creating that wall motion abnormality cannot be excluded. There is suggestion of diffuse pericardial thickening. I do not see any free fluid. 2. There is also a left pleural effusion adjacent to the pericardium. 3. The mitral valve opens normally. 4. The pulsed wave Doppler of mitral inflow shows mild reversal of the E and the A ratio at 0.8. 5. The tissue Doppler of septal and lateral mitral annulus averages 9 cm. 6. The tricuspid valve shows mild degree of regurgitation. 7. Pulmonary pressure is estimated at 30 mmHg. 8. The right ventricle did not appear to be dilated. The right atrium also does not appear to be dilated. 9. The left atrium is mild to moderately enlarged. 10.The aortic valve appears to be grossly unremarkable. 11.Pulmonic valve appears to be also grossly unremarkable. SUMMARY: In summary, this study is abnormal. It shows some diffuse thickening of the pericardium without obvious calcification. This may indicate the presence of some sort of organizing pericarditis. I do not see free fluid as in acute pericarditis/ There is left pleural effusion. The left ventricular systolic function appears to be mildly decreased in the order of 45% to 50%. The evaluation of the ejection fraction is difficult because the patient is tachycardic and the apical windows are really very limited. No significant valvular abnormality appears to be present. Please correlate clinically with CT of the chest. cc: MD Oli Carranza MD [facility]IAL HOSPITALJaylen
[2018-04-28] MEDS: ATIVAN PO PRN (21:25)
[2018-04-28] MEDS: PROTONIX IV SCH ×3 (21:28→23:53)
--- NOTE | 2018-04-28 22:40 | PROGRESS NOTE ---
DATE: 04/28/2018 SUBJECTIVE: The patient notes he is still having cough and congestion and still having shortness of breath, but overall notes that he is starting to feel a little bit better. OBJECTIVE: Vital Signs: Temperature is 97.4, pulse 114, respiratory rate 22, BP 118/83. General: The patient is awake and alert. He is in no current respiratory distress although he is a chronically ill- appearing individual. HEENT: Normocephalic. Neck: Supple. Cardiovascular: Tachycardia. No appreciable murmurs. Chest: Decreased but equal breath sounds. Scattered rhonchi throughout. Abdomen: Soft, nondistended, nontender. Extremities: Moves all extremities. ASSESSMENT: 1. Bilateral pneumonia. CT shows dense bilateral infiltrate. 2. Moderate right-sided pleural effusion. 3. Acute respiratory failure. 4. Cirrhosis. 5. Throat cancer. PLAN: We will continue the patient in the hospital. Continue vancomycin, Zosyn, IV Lasix, and we will follow. cc: Daniel Coe MD
[2018-04-29] MEDS: ZOSYN 3.375 GM in NS 50 ML IV SCH ×4 (00:03→17:36)
[2018-04-29] MEDS: LASIX IV SCH (00:03)
[2018-04-29] MEDS: DUONEB (A & A) INH SCH ×6 (03:33→22:32)
[2018-04-29] MEDS: LOVENOX SUBQ SCH (05:30)
[2018-04-29 06:31] LABS: BASO# 0.01 X1000 (0.0-0.2); BASO% 0.1 % (0.0-0.8); EOS# 0.02 X1000 (0.0-0.7); EOS% 0.3 % (0.0-10.0); HEMATOCRIT 40.7 % (42.0-52.0); HEMOGLOBIN 12.1 g/dL (14.0-18.0); IMM GRAN# 0.01 X1000 (0.0-0.04); IMM GRAN% 0.1 % (0.0-0.5); LYMPH# 0.28 X1000 (1.2-3.4); MCH 26.8 PG (27-31); MCHC 29.7 g/dL (33-37); MCV 90.2 FL (81-99); MONO# 0.43 X1000 (0.11-0.59); MONO% 6.2 % (1.7-9.3); MPV 10.9 FL (7.4-10.4); NEUT# 6.22 X1000 (1.4-6.5); NEUT% 89.3 % (42.2-75.2); PLT 209 X1000 (130-400); RBC 4.51 XMIL (4.7-6.1); RDW 17.3 % (11.5-14.5); WBC 6.97 X1000 (4.8-10.8)
[2018-04-29 06:49] LABS: ESTIMATED GFR > 60
[2018-04-29 06:50] LABS: AGAP 10; BUN 31 mg/dL (8-22); CALCIUM 8.6 mg/dL (8.8-10.2); CHLORIDE 97 mmol/L (98-107); COSMO 303; CREATININE 0.8 mg/dL (0.7-1.2); GLUCOSE 99 mg/dL (70-104); POTASSIUM 3.4 mmol/L (3.5-5.1); SODIUM 149 mmol/L (136-145); TCO2 42 mmol/L (25-35)
[2018-04-29] MEDS: MUCOMYST 20% INH SCH ×2 (08:09→19:17)
[2018-04-29] MEDS: NICODERM PATCH TD SCH (08:16)
[2018-04-29] MEDS: LASIX PO SCH ×2 (08:16→20:14)
[2018-04-29 09:13] LABS: ANISOCYTOSIS 1+; LYMPHS 2 % (21-51); MONO 4 % (1-9); SEGS 94 % (42-75)
[2018-04-29 09:14] LABS: POIKILOCYTOSIS 1+
[2018-04-29] MEDS: NORCO-10 PO PRN (17:43)
[2018-04-29] MEDS: PROTONIX IV SCH (20:18)
--- NOTE | 2018-04-29 23:21 | PROGRESS NOTE ---
DATE: 04/29/2018 SUBJECTIVE: Patient notes overall he is feeling a little bit better. Still having cough, congestion, and shortness of breath, still requiring oxygen. OBJECTIVE: Vital signs: Temperature 97.4 degrees, pulse 107 to 110, BP 112/50, O2 saturation 93% on 3 L. General: Patient is awake, alert. He is in no current respiratory distress, although he is still requiring oxygen. HEENT: Normocephalic. Neck: Supple. CARDIOVASCULAR: Regular rate. Chest: Clear. Positive rhonchi. No crackles. Abdomen: Soft, nondistended. Extremities: Moves all extremities. ASSESSMENT: 1. Nausea vomiting. 2. Bilateral pneumonia with dense infiltrates, per CT scan. 3. Moderate sized right pleural effusion. 4. Cirrhosis. 5. Throat cancer. PLAN: Patient's sodium is elevating. We will decrease his Lasix down to p.o. twice a day, follow his potassium. If he tolerates this well, hopefully, we can discharge home tomorrow. We will stop his vancomycin today. cc: Daniel Coe MD
[2018-04-30] MEDS: ZOSYN 3.375 GM in NS 50 ML IV SCH ×3 (01:45→12:16)
[2018-04-30] MEDS: DUONEB (A & A) INH SCH ×3 (03:16→11:22)
[2018-04-30] MEDS: LOVENOX SUBQ SCH (05:44)
[2018-04-30 07:23] LABS: BASO# 0.01 X1000 (0.0-0.2); BASO% 0.1 % (0.0-0.8); EOS# 0.02 X1000 (0.0-0.7); EOS% 0.3 % (0.0-10.0); HEMOGLOBIN 12.5 g/dL (14.0-18.0); IMM GRAN# 0.02 X1000 (0.0-0.04); IMM GRAN% 0.3 % (0.0-0.5); LYMPH# 0.41 X1000 (1.2-3.4); LYMPH% 5.2 % (20.5-51.1); MCH 26.6 PG (27-31); MCHC 28.4 g/dL (33-37); MCV 93.6 FL (81-99); MONO# 0.49 X1000 (0.11-0.59); MONO% 6.2 % (1.7-9.3); MPV 10.9 FL (7.4-10.4); NEUT# 7.01 X1000 (1.4-6.5); NEUT% 87.9 % (42.2-75.2); PLT 253 X1000 (130-400); RDW 17.5 % (11.5-14.5); WBC 7.96 X1000 (4.8-10.8)
[2018-04-30 07:26] LABS: ESTIMATED GFR > 60
[2018-04-30 07:28] LABS: AGAP 7; BUN 35 mg/dL (8-22); CALCIUM 8.7 mg/dL (8.8-10.2); CHLORIDE 94 mmol/L (98-107); COSMO 301; CREATININE 0.9 mg/dL (0.7-1.2); GLUCOSE 108 mg/dL (70-104); POTASSIUM 3.6 mmol/L (3.5-5.1); SODIUM 147 mmol/L (136-145); TCO2 46 mmol/L (25-35)
[2018-04-30] MEDS: MUCOMYST 20% INH SCH (07:43)
[2018-04-30] MEDS: NORCO-10 PO PRN (09:17)
[2018-04-30] MEDS: NICODERM PATCH TD SCH (09:18)
[2018-04-30] MEDS: LASIX PO SCH (09:18)
[2018-04-30 09:28] LABS: LYMPHS 6 % (21-51); MONO 5 % (1-9); SEGS 89 % (42-75)
[2018-04-30 11:19] VITALS: BP 107/86
--- NOTE | 2018-05-01 05:43 | DISCHARGE SUMMARY ---
ADMISSION DATE: 04/27/2018 DISCHARGE DATE: 04/30/2018 DIAGNOSES: 1. Bilateral pneumonia. 2. Nausea and vomiting. 3. Right-sided pleural effusion. 4. Cirrhosis. 5. History of throat cancer. DIAGNOSTICS: 1. On 04/27/2018, chest x-ray revealed bilateral consolidations, likely representing a combination of pneumonia and edema. Moderate right-sided pleural effusion and likely small left effusion. 2. 04/28/2018, CT of the chest with contrast revealed dense bilateral infiltrates compatible with pneumonia. A large right and trace left pleural effusions with ascites and body wall edema and cirrhosis. 3. Echocardiogram revealed EF of 45% to 50% with global left ventricular systolic function, mildly decreased, with no significant valvular abnormality. MICROBIOLOGY: 1. Blood cultures x2 revealed no growth after 48 hours. 2. Sputum revealed normal janice. 3. Urine revealed mixed janice. HOSPITAL COURSE: Mr. Canela presented to the emergency room complaining of 2 weeks of cough and shortness of breath. He was found to have bilateral pneumonia for which he initially received antibiotic coverage of Zosyn and vancomycin. Diuresis with IV Lasix for a cumulative total being - 3 L. On multiple occasions he had room air saturations of 78% with sats of 96% to 98% on 3 L oxygen. Home O2 was arranged through complete choice and thankfully he is ready for discharge. DISCHARGE PHYSICAL EXAMINATION: Cardiovascular: Regular rate and rhythm. S1 and S2 appreciated. Pulmonary: Breath sounds are diminished throughout. Chest rises and falls symmetrically with respiration. Gastrointestinal: Abdomen is soft, nontender, nondistended with bowel sounds in all 4 quadrants. Extremities: He does have about 1+ pedal edema. Neurologic: He is alert and oriented x3. Vital signs: Blood pressure is 107/86 with a heart rate of 100, respirations 20, temperature is 97.6 degrees, with O2 saturation 94% to 97% on 3 L nasal cannula. DISCHARGE MEDICATIONS: 1. Lasix 40 mg p.o. b.i.d. 2. Fentanyl patch 50 mcg, 1 patch every 72 hours. 3. Omnicef 300 mg p.o. b.i.d. for 7 days. 4. Doxycycline 100 mg p.o. b.i.d. for 7 days. 5. Protonix 20 mg p.o. daily. 6. Zofran 8 mg p.o. q.8 hours p.r.n. 7. Lorazepam 0.5 p.o. as directed. 8. Alda 10/325 as directed. 9. Flexeril 5 mg p.o. q.4-6 hours p.r.n. 10. ProAir inhaler 2 puffs q.4-6 hours p.r.n. wheezing. During the hospitalization, Mr. Canela was evaluated by dietary and he received Ensure inline bolus feedings 240 mL 4 times a day through his PEG tube, along with his p.o. intake. He is discharged to continue his same feedings at home, which included Boost 3 to 4 times a day. DISCHARGE DISPOSITION: He is being discharged home in stable condition with family members. He does have [facility] to follow. He will follow up with his physicians as scheduled. TIME SPENT: This is a greater than 30 minute discharge. Dictated by BARBARA Ramey for Daniel Coe MD This chart was documented by, BARBARA Ramey and accurately reflects the services performed, treatment plan and medical decisions as attested by the providers signature Daniel Coe MD. cc: BARBARA Ramey MD
--- NOTE | 2018-05-01 06:03 | DISCHARGE SUMMARY ---
ADMISSION DATE: 04/27/2018 DISCHARGE DATE: 04/30/2018 DISCHARGE DIAGNOSES: 1. Bilateral pneumonia with dense infiltrates to moderate right-sided pleural effusion, slight improvement. 2. Acute hypoxic respiratory failure. 3. Throat cancer. 4. Cirrhosis. 5. Edema. 6. Hyponatremia. CONSULTATIONS: None. PROCEDURES: None. BRIEF HOSPITAL COURSE: Patient is a 47-year-old male who presented to [facility] who unfortunately has a known history of throat cancer and COPD. Chest x-ray demonstrated bilateral dense consolidations as well as a left effusion. He was placed on antibiotics, oxygen, slowly continued to improve. On discharge he is awake, alert. He was sitting up on the side of the bed. He is in hypoxic respiratory failure, but otherwise in minimal respiratory distress. He notes that he is feeling better and agrees with going home. DISPOSITION: Patient will be discharged home. Will continue Omnicef and doxycycline at home. He will follow up outpatient with primary care, Dr. Garza, to repeat a chest x-ray and possibly CT scan due to his dense infiltrates. He will continue oxygen at home. We will continue to follow up with Dr. Garza, regarding his throat cancer. Greater than 30 minutes was spent in total care. cc: Daniel Coe MD
== END 2018-04-30 12:15 | disposition home or self-care (01) | DRG 193 ==
LOC: P.ED 08:39 → P.MEDSURG 12:17 → SUATTDRO 12:17 → P.MEDSURG 12:28
PROVIDERS: ATTEND Family Medicine
CPT/HCPCS: 36415; 71010; 71045; 71260; 80048; 80053; 81001; 82550; 82805; 83605; 84484; 85025; 85610; 85730; 87040; 87070; 87088; 87205; 89220; 93306; 94640; 94761; 99285; A9270; C9113; J1650; J1940; J2543; J3370; J7040; S0164